=== PATIENT | female | born 1965 | race African-American/Black ===

== ENCOUNTER 2016-10-14 08:46 | Day surgery (SDC) | payer OTHER ==
[2016-10-09 19:40] LABS: BASOPHILS 0.1 %; BASOPHILS ABSOLUTE 0.01 10/3/uL (0.0-0.16); EOSINOPHILS 0.6 %; EOSINOPHILS ABSOLUTE 0.05 10/3/uL (0.0-0.53); HEMATOCRIT 26.9 % (36.0-48.0); HEMOGLOBIN 7.6 g/dL (12.0-16.0); IMMATURE GRANULOCYTES 0.1 %; IMMATURE GRANULOCYTES ABSOLUTE 0.01 10/3/uL (0.0-0.11); LYMPHOCYTES ABSOLUTE 1.76 10/3/uL (0.67-4.30); MANUAL DIFF NO %; MEAN CORPUS HGB CONC 28.3 g/dL (32.0-36.0); MEAN CORPUSCULAR HEMOGLOB 22.3 pg (26.0-34.0); MEAN CORPUSCULAR VOLUME 78.9 fL (80-100); MEAN PLATELET VOLUME 10.7 fL (9.2-13.0); MONOCYTES 8.4 %; MONOCYTES ABSOLUTE 0.74 10/3/uL (0.21-1.20); NEUTROPHILS 70.8 %; NEUTROPHILS ABSOLUTE 6.23 10/3/uL (2.02-8.40); PLATELET COUNT 279 10/3/uL (150-400); RBC DISTRIBUTION WIDTH 19.6 % (12.0-16.0); RED CELL COUNT 3.41 10/6/uL (4.0-5.6); WHITE BLOOD CELLS 8.8 10/3/uL (4.5-10.5)
[2016-10-09 19:47] LABS: ASCORBIC ACID (UR NOT ORDER) NEG (NEG); BILIRUBIN, URINE NEGATIVE (NEG); KETONE, URINE NEGATIVE (NEG); LEUKOCYTE ESTERASE(NOT OR NEG (NEG); WBC (NOT ORDERED) (RFLEX) < 1 (0-5)
[2016-10-09 19:52] LABS: PARTIAL THROMBO TIME 31.4 SEC (22.5-37.2)
[2016-10-09 19:53] LABS: INTERNATIONAL NORMAL RATI 1.1 UNITS (-); PROTIME (NOT ORD) 14.5 SEC (12.0-14.5)
[2016-10-09 19:57] LABS: BUN (BLOOD UREA NITROGEN) 11 MG/DL (6-23); CALCIUM, SERUM 8.7 MG/DL (8.5-10.4); CHLORIDE, SERUM 106 MMOL/L (96-112); CO2 (CARBON DIOXIDE) 25 MMOL/L (24-34); CREATININE 0.86 MG/DL (0.55-1.02); GFR AFRICAN AMERICAN 91 ML/MIN (>=60); GFR NON AFRICAN AMERICAN 78 ML/MIN (>=60); GLUCOSE, SERUM 80 MG/DL (60-99); POTASSIUM, SERUM 4.3 MMOL/L (3.5-5.3); SODIUM, SERUM 141 MMOL/L (135-148)
--- NOTE | ~2016-10-14 | OP ---
Record Of Operation [facility] [address] [place]. [address] NAME: BRITT DOMINGUEZ : 65 STATUS : [facility]#: [id number] AGE: 51 ADM/REG DATE : 10/14/16 MR#: [id number] REPORT SERV DATE: 10/20/16 DICTATED BY: CORBIN FERMIN DATE: 10/20/16 REPORT STATUS : Draft TRANSCRIBED BY: MODL DATE: 10/20/16 DATE OF PROCEDURE: 10/14/2016 PREOPERATIVE DIAGNOSIS: Abnormal uterine bleeding. POSTOPERATIVE DIAGNOSIS: Abnormal uterine bleeding. PROCEDURES: 1. Robot-assisted laparoscopic hysterectomy with bilateral salpingectomy, CPT code 30915. 2. Cystoscopy. ANESTHESIA: General. ESTIMATED BLOOD LOSS: 20 mL. CRYSTALLOID: 2100 mL. URINE OUTPUT: 200 mL. DRAINS: Luis. FINDINGS: Grossly normal-appearing uterus, bilateral fallopian tubes and ovaries with no peritoneal deformities. PATHOLOGY: Uterus, uterine cervix, bilateral fallopian tubes. COMPLICATIONS: None. POSTOPERATIVE PLAN: Extubated to the PACU. PROCEDURE IN DETAIL: After informed consent was signed, the patient was taken to the operating room and placed in a dorsal supine position where adequate general anesthesia was administered. She was then placed in dorsal lithotomy position in Morgan stirrups and prepped and draped in the usual fashion, and a Luis catheter was placed. The uterus was sounded, cervix dilated, and the EDISON uterine manipulator was assembled and deployed. A left upper quadrant incision was made with a scalpel and carried down to the fascia, which was incised, muscle , posterior sheath entered sharply, trocar placed, and abdomen insufflated with CO2 gas. Additional robot trocars were placed in the supraumbilical region and bilateral upper quadrants, all under direct visualization. The patient was then placed in steep Trendelenburg, and the robot was docked in the usual fashion. Bilateral round ligaments were taken with bipolar cautery, transected with monopolar scissors, and the pelvic peritoneum was taken down lateral and parallel to the infundibulopelvic ligaments. With the ureters identified and reflected medially, clips were placed in the origins of the uterine arteries bilaterally. The bilateral mesosalpinx was taken up to the level of the uterine cornua with monopolar scissors, and the fallopian tubes were transected at the uterus and taken out through the investment sales assistant port. The utero-ovarian ligaments were then Record Of Operation [facility] [id number] [facility] [place]. [address] NAME: BRITT DOMINGUEZ : 65 STATUS : [facility] PAT#: [id number] AGE: 51 ADM/REG DATE : 10/14/16 MR#: [id number] REPORT SERV DATE: 10/20/16 DICTATED BY: CORBIN FERMIN DATE: 10/20/16 REPORT STATUS : Draft TRANSCRIBED BY: CLIFTON DATE: 10/20/16 taken with bipolar cautery, transected with monopolar scissors, and the ovaries were placed into the upper pelvis. The posterior colpotomy was then made. The vesicouterine peritoneum was then incised with monopolar scissors, and the bladder was taken down well beneath the level of the anterior LOGAN ring and the anterior colpotomy was made. The uterine vessels were then taken at the cervix with bipolar cautery, transected with monopolar scissors, and the parametria reflected off the cervical stroma. The anterior and posterior colpotomies were then connected using monopolar scissors, and the uterus and uterine cervix were taken out through the vagina. The vagina was then closed with 0-180 V-Loc suture with a running stitch. The pelvis was irrigated and found to be hemostatic. All instruments were then removed from the abdomen, the robot undocked, and CO2 gas evacuated. The Luis catheter was then removed, and the cystoscope was placed through the urethra and the bladder distended with appropriate media. Bilateral brisk ureteral jets were noted suggesting bilateral ureteral patency. The cystoscope was removed and the bladder drained. The CO2 gas was then reintroduced into the abdomen, and using the laparoscope, the pelvis was re-examined and found to be hemostatic. The laparoscope and all trocars were then removed from the abdomen and the CO2 gas evacuated. The fascia from the left upper quadrant incision was closed with 0 Vicryl suture, and the skin from all trocar sites was closed with 4-0 Monocryl and Dermabond. The patient tolerated the procedure well, was placed back in dorsal supine position, awakened, extubated, and sent to the PACU in stable condition. QUYNH/CLIFTON Corbin Fermin MD / [id number] CC: Corbin Fermin MD
[~2016-10-14 08:46] MED LIST: 8 HOUR650 MG PO; ADVIL PO; FERROUS SULF325 M1 PO; PROVERA2.5 MG PO
[2016-10-14 10:12] LABS: BASOPHILS 0.4 %; BASOPHILS ABSOLUTE 0.03 10/3/uL (0.0-0.16); EOSINOPHILS 0.4 %; EOSINOPHILS ABSOLUTE 0.03 10/3/uL (0.0-0.53); HEMATOCRIT 27.6 % (36.0-48.0); HEMOGLOBIN 8.2 g/dL (12.0-16.0); IMMATURE GRANULOCYTES 0.1 %; IMMATURE GRANULOCYTES ABSOLUTE 0.01 10/3/uL (0.0-0.11); LYMPHOCYTES 28.8 %; LYMPHOCYTES ABSOLUTE 2.09 10/3/uL (0.67-4.30); MANUAL DIFF NO %; MEAN CORPUS HGB CONC 29.7 g/dL (32.0-36.0); MEAN CORPUSCULAR HEMOGLOB 22.8 pg (26.0-34.0); MEAN CORPUSCULAR VOLUME 76.7 fL (80-100); MEAN PLATELET VOLUME 9.1 fL (9.2-13.0); MONOCYTES 11.3 %; MONOCYTES ABSOLUTE 0.82 10/3/uL (0.21-1.20); NEUTROPHILS ABSOLUTE 4.27 10/3/uL (2.02-8.40); PLATELET COUNT 251 10/3/uL (150-400); WHITE BLOOD CELLS 7.3 10/3/uL (4.5-10.5)
== END 2016-10-14 17:45 | disposition home or self-care (01) ==
LOC: SDC 08:46
PROVIDERS: Obstetrics & Gynecology Gynecology
PROC: 0UT74ZZ Resection of Bilateral Fallopian Tubes, Percutaneous Endoscopic Approach (ICD-10-PCS; 2016-10-14)
PROC: 0UT94ZZ Resection of Uterus, Percutaneous Endoscopic Approach (ICD-10-PCS; principal; 2016-10-14 11:45)
PROC: 0UTC4ZZ Resection of Cervix, Percutaneous Endoscopic Approach (ICD-10-PCS; 2016-10-14 11:45)
DX: N80.0 Endometriosis of uterus (principal); D25.2 Subserosal leiomyoma of uterus; N72 Inflammatory disease of cervix uteri; E66.01 Morbid (severe) obesity due to excess calories; Z68.43 Body mass index [BMI] 50.0-59.9, adult; D64.9 Anemia, unspecified; G47.33 Obstructive sleep apnea (adult) (pediatric); Z99.89 Dependence on other enabling machines and devices; M10.9 Gout, unspecified; Z79.899 Other long term (current) drug therapy; Z87.891 Personal history of nicotine dependence; Z90.89 Acquired absence of other organs; Z90.49 Acquired absence of other specified parts of digestive tract; Z98.890 Other specified postprocedural states
CPT/HCPCS: 36415; 71020-PO; 80048; 81001; 84703; 85025; 85610; 85730; 86850; 86900; 86901; 86920; 88305; 88307; 93005; A9270-GY; C1758; J0360; J0694; J1170; J1885; J2250; J2405; J2710; J2795; J3010; P9016; P9045